=== PATIENT | female | born 1985 | race Caucasian/White ===

== ENCOUNTER 2018-10-24 17:58 | Emergency (ER) | payer BC ==
--- NOTE | 2018-10-24 18:26 | PDOC ---
History of Present Illness - History of Present Illness Initial Comments: 10/24/18 18:55 The patient is a 33-year-old female with no reported past medical history presents to the emergency department with a cough. The patient reports the since yesterday shes been having a severe cough, thats aggravated with deep breathing and worse than prior bouts of cough. The patient reports mild relief while eating. The patient reports associated symptoms of posttussive emesis, urinary incontinence and shortness of breath. Denies fevers or chills. The patient reports about 2 weeks back she was seen at a for viral URI symptoms, where she tested negative for flu and was given a decadron shot. The patient reports following that, she developed severe reflux and was seen by GI. The patient was scoped by GI, which was significant for esophagitis, secondary to relaxation of the pyloric from the shot and pharyngitis. The patient was prescribed Augmentin 10 day course, currently on the 7th day, 40 of Pepcid, Mylanta prn and antiviral medication. The patient reports she was seen by ENT yesterday, where she was scoped again and didnt report any abnormal results. Denies known sick contact. Denies hx of asthma. Allergies: NKDA Social history: None reported PCP: none reported <Brenda Tucker - Last Filed: 10/24/18 18:55> - General History Source: Patient Exam Limitations: No Limitations <Lani Peters - Last Filed: 10/25/18 07:41> - General Chief Complaint: Respiratory Stated Complaint: COUGH Time Seen by Provider: 10/24/18 18:23 Past History <Brenda Tucker - Last Filed: 10/24/18 18:55> - Past Medical History COPD: No Disorders: Yes (GERD, SUBLINGUAL TONSILITIS) Other medical history: TRAUMATIC BRAIN INJURY, PSORIASIS - Suicide/Smoking/Psychosocial Hx Smoking History: Never smoked Hx Alcohol Use: No Drug/Substance Use Hx: No <Lani Peters - Last Filed: 10/25/18 07:41> - Past Medical History Allergies/Adverse Reactions: Allergies Allergy/AdvReac Type Severity Reaction Status Date / Time No Known Allergies Allergy Verified 10/24/18 18:07 Home Medications: Ambulatory Orders Acyclovir [Zovirax -] 400 mg PO TID 10/24/18 Albuterol 0.083% Nebulizer Alannah [Ventolin 0.083% Nebulizer Soln -] 1 neb NEB Q4H #24 vial 10/24/18 Amoxicillin/Potassium Clav [Augmentin 875-125 Tablet] 1 each PO BID 10/24/18 Benzonatate [Tessalon Pearls -] 200 mg PO TID #21 cap 10/24/18 Calcium Carbonate [Tums Ultra] 400 mg PO PRN PRN 10/24/18 Esomeprazole Magnesium [Nexium 24Hr] 20 mg PO DAILY #14 capsule. 10/24/18 Famotidine [Pepcid] 40 mg PO BID 10/24/18 Mag Hydrox/Al Hydrox/Simeth [Mylanta Oral Suspension -] 30 ml PO TID 10/24/18 Nebulizer Accessories [A.i.r.s. Nebulizer] 1 each MC ONCE #1 kit 10/24/18 Nebulizer and Compressor [Comp-Air Nebulizer System] 1 each MC ONCE #1 each 05/06 Oxycodone HCl/Acetaminophen [Percocet 5-325 mg Tablet] 1 tab PO Q6H PRN Review of Systems - Review of Systems Able to Perform ROS?: Yes Comments:: 10/24/18 18:31 GENERAL/CONSTITUTIONAL: No fever or chills. No weakness. HEAD, EYES, EARS, NOSE AND THROAT: No change in vision. No ear pain or discharge. No sore throat. CARDIOVASCULAR: +shortness of breath. No chest pain. RESPIRATORY: +cough with posttussive emesis. No wheezing, or hemoptysis. GASTROINTESTINAL: No nausea, vomiting, diarrhea or constipation. GENITOURINARY: +urinary incontinence. No dysuria, frequency, or change in urination. MUSCULOSKELETAL: No joint or muscle swelling or pain. No neck or back pain. SKIN: No rash NEUROLOGIC: No headache, vertigo, loss of consciousness, or change in strength/ sensation. ENDOCRINE: No increased thirst. No abnormal weight change. HEMATOLOGIC/LYMPHATIC: No anemia, easy bleeding, or history of blood clots. ALLERGIC/IMMUNOLOGIC: No hives or skin allergy. <Brenda Tucker - Last Filed: 10/24/18 18:55> *Physical Exam - Vital Signs Last Vital Signs Temp Pulse Resp BP Pulse Ox 98.1 F 122 H 20 144/81 100 10/24/18 17:59 10/24/18 17:59 10/24/18 17:59 10/24/18 17:59 10/24/18 17:59 - Physical Exam Comments: 10/24/18 18:31 GENERAL: Awake, alert, and fully oriented, in no acute distress HEAD: No signs of trauma EYES: PERRLA, EOMI, sclera anicteric, conjunctiva clear ENT: +No tonsillar exudate, no plaque, posterior pharynx cobblestoning. NECK: Normal ROM, supple, no lymphadenopathy, JVD, or masses LUNGS: +decreased breath sounds at the bases with rhoni on cough and faint wheezing. HEART: Regular rate and rhythm, normal S1 and S2, no murmurs, rubs or gallops ABDOMEN: Soft, nontender. No guarding, no rebound. No masses EXTREMITIES: No lower extremity edema. NEUROLOGICAL: Awake, alert and oriented x3. SKIN: Warm, Dry, no rashes or lesions noted. <Brenda Tucker - Last Filed: 10/24/18 18:55> - Vital Signs Last Vital Signs Temp Pulse Resp BP Pulse Ox 98.1 F 122 H 20 144/81 100 10/24/18 17:59 10/24/18 17:59 10/24/18 17:59 10/24/18 17:59 10/24/18 17:59 <Lani Peters - Last Filed: 10/25/18 07:41> Moderate Sedation - Procedure Monitoring Vital Signs: Procedure Monitoring Vital Signs Temperature 98.1 F 10/24/18 17:59 Pulse Rate 122 H 10/24/18 17:59 Respiratory Rate 20 10/24/18 17:59 Blood Pressure 144/81 10/24/18 17:59 O2 Sat by Pulse Oximetry (%) 100 10/24/18 17:59 <Brenda Tucker - Last Filed: 10/24/18 18:55> - Procedure Monitoring Vital Signs: Procedure Monitoring Vital Signs Temperature 98.1 F 10/24/18 17:59 Pulse Rate 122 H 10/24/18 17:59 Respiratory Rate 20 10/24/18 17:59 Blood Pressure 144/81 10/24/18 17:59 O2 Sat by Pulse Oximetry (%) 100 10/24/18 17:59 <Lani Peters - Last Filed: 10/25/18 07:41> Medical Decision Making - Medical Decision Making 10/24/18 18:23 33 yo F h/o recently diagnosed viral uri, secondary esophagitis, pharyngitis after receiving decadron shot for pharyngitis. here today with worsening cough , no having coughing fits, followed by post tussive emesis and incontinence from severe coughing. no f/c cough nonproductive. no travel. no known sick contacts. 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 did see urgent care 4 days ago had cxr reportedly negative. flu was negative. then she saw ENT yesterday and rescope of throat / clear. differential: bronchospasm, laryngospasm secondary to viral uri, or severe gerd , pneumona, rib fracture or ptx. plan cxr duonebs. consider benzos for laryngospasm if no relief with humdified ox and nebs. although no stridor heard. 10/24/18 19:00 pt signed out to oncoming physician, awaiting cxr given duoneb. will swab for pertussis due to cough prolong course and coughing fits. <Lani Peters - Last Filed: 10/25/18 07:41> *DC/Admit/Observation/Transfer - Attestations Scribe Attestion: 10/24/18 18:31 Documentation prepared by Brenda Tucker, acting as director medical science for Lani Peters MD. <Brenda Tucker - Last Filed: 10/24/18 18:55> <Lani Peters - Last Filed: 10/25/18 07:41> Diagnosis at time of Disposition: Persistent cough - Discharge Dispostion Disposition: HOME Condition at time of disposition: Good - Prescriptions Prescriptions: Albuterol 0.083% Nebulizer Alannah [Ventolin 0.083% Nebulizer Soln -] 1 neb NEB Q4H #24 vial Benzonatate [Tessalon Pearls -] 200 mg PO TID #21 cap Esomeprazole Magnesium [Nexium 24Hr] 20 mg PO DAILY #14 capsule. Nebulizer Accessories [A.i.r.s. Nebulizer] 1 each MC ONCE #1 kit Nebulizer and Compressor [Comp-Air Nebulizer System] 1 each MC ONCE #1 each - Patient Instructions Additional Instructions: I am giving you a prescription for albuterol nebulizer treatments U can take them as often as every 4-6 hours if needed. Also Nexium take one tablet a day as discussed with the doctor, Return to the emergency department immediately with ANY new, persistent or worsening symptoms. Continue any medications as previously prescribed by your physician. You should follow up with your primary doctor as soon as possible regarding today's emergency department visit. . Please make sure your doctor reviews the results of your emergency evaluation. Thank you for coming to the Emergency Department today for your care. It was a pleasure to see you today. Please note that your evaluation is INCOMPLETE until you follow-up with your doctor.
[2018-10-24] MEDS ORDERED: ALBUTEROL SO4 2.5/IPRATROPIUM 0.5 INH SOL 3 ML VIAL.NEB. NEB ONE ×3 (18:27→19:10)
[2018-10-24 18:42] VITALS: BP 144/81; PULSE 122; TEMP 98.1; BMI 29.5
--- NOTE | 2018-10-24 19:35 | PDOC ---
*Physical Exam - Vital Signs Last Vital Signs Temp Pulse Resp BP Pulse Ox 98.1 F 122 H 20 144/81 100 10/24/18 17:59 10/24/18 17:59 10/24/18 17:59 10/24/18 17:59 10/24/18 17:59 ED Treatment Course - Medications Given in the ED: ED Medications Discontinued Medications Generic Name Dose Route Start Last Admin Trade Name Marques PRN Reason Stop Dose Admin Albuterol/Ipratropium 1 amp 10/24/18 18:27 10/24/18 19:13 Duoneb - NEB 10/24/18 18:28 1 amp ONCE ONE Administration Albuterol/Ipratropium 1 amp 10/24/18 18:27 10/24/18 19:13 Duoneb - NEB 10/24/18 18:28 1 amp ONCE ONE Administration Progress Note - Progress Note Progress Note: Care of this patient was transferred to me from Dr. Wray at 1900 hrs. Patient is a 33-year-old female who comes in complaining of difficulty breathing and the episodes of severe coughing. Patient has had multiple visits to her primary care doctor for similar complaint in addition to that patient was given steroids and as a result developed esophagitis. Patient said she was scoped yesterday and said that everything was clear regarding her esophagitis. Patient is receiving some dual nebs and will repeat a chest x-ray Swab will be sent for pertussis. 20:23 reevaluation patient feels better after nebulizer treatment. Patient deferred the chest x-ray. As she had had a negative/normal chest x-ray a few days ago and her lungs were clear on my examination Discussed with patient possibilities for her cough, a pertussis swab was sent and patient understands the results cannot be available for several days. Prescriptions were sent to patient's pharmacy for Tessalon Perles and for Nexium. Patient has a primary care doctor she can follow up with Friday *DC/Admit/Observation/Transfer Diagnosis at time of Disposition: Persistent cough - Discharge Dispostion Disposition: HOME Condition at time of disposition: Good Decision to Admit order: No - Prescriptions Prescriptions: Albuterol 0.083% Nebulizer Alannah [Ventolin 0.083% Nebulizer Soln -] 1 neb NEB Q4H #24 vial Benzonatate [Tessalon Pearls -] 200 mg PO TID #21 cap Esomeprazole Magnesium [Nexium 24Hr] 20 mg PO DAILY #14 capsule.dr - Referrals - Patient Instructions Additional Instructions: I am giving you a prescription for albuterol nebulizer treatments U can take them as often as every 4-6 hours if needed. Also Nexium take one tablet a day as discussed with the doctor, Return to the emergency department immediately with ANY new, persistent or worsening symptoms. Continue any medications as previously prescribed by your physician. You should follow up with your primary doctor as soon as possible regarding today's emergency department visit. . Please make sure your doctor reviews the results of your emergency evaluation. Thank you for coming to the Emergency Department today for your care. It was a pleasure to see you today. Please note that your evaluation is INCOMPLETE until you follow-up with your doctor. - Post Discharge Activity
== END 2018-10-24 20:37 | disposition home or self-care (01) ==
LOC: FER 17:58 → EDBD 17:58 → FER 20:37
PROC: 3E0F7GC Introduction of Other Therapeutic Substance into Respiratory Tract, Via Natural or Artificial Opening (ICD-10-PCS; principal; 2018-10-24)
DX: R05 Cough (principal); K21.9 Gastro-esophageal reflux disease without esophagitis
CPT/HCPCS: 84703; 87798; 99282-25

== ENCOUNTER 2021-03-17 06:22 | Emergency (ER) | payer BC ==
[2021-03-17 06:40] VITALS: PULSE 77; TEMP 98.2; BMI 31.1
[2021-03-17] MEDS ORDERED: SODIUM CHLORIDE 1,000 ML IV STA (06:57)
[2021-03-17] MEDS ORDERED: LORazepam 2 MG/ML SDV VIAL IVPUSH ONE (07:02)
[2021-03-17] MEDS ORDERED: LORazepam 2 MG/ML SDV VIAL ONE (07:13)
[2021-03-17 08:41] LABS: BASO % 0.6 % (0-2.0); EOS % 1.6 % (0-4.5); HEMATOCRIT 40.7 % (32.4-45.2); HEMOGLOBIN 14.1 GM/dl (10.7-15.3); LYMPH % 24.9 % (8-40); MCH 30.5 pg (25.7-33.7); MCHC 34.7 g/dl (32.0-36.0); MONO % 6.4 % (3.8-10.2); NEUT % 66.5 % (42.8-82.8); PLATELET COUNT 278 10^3/uL (134-434); RBC 4.63 M/mm3 (3.60-5.2); RDW 12.2 % (11.6-15.6); WHITE BLOOD COUNT 11.6 K/mm3 (4.0-10.8)
[2021-03-17 08:46] LABS: BILIRUBIN,TOTAL 1.1 mg/dl (0.2-1); CREATININE 0.8 mg/dl (0.55-1.3); MAGNESIUM 2.1 mg/dL (1.8-2.4); TOT PROT 6.9 g/dl (6.4-8.2)
[2021-03-17] MEDS ORDERED: KETOROLAC TROMETHAMINE 30 MG/1 ML VIAL IVPUSH ONE (08:49)
[2021-03-17] MEDS ORDERED: KETOROLAC TROMETHAMINE 15 MG/ML VIAL ONE (08:51)
[2021-03-17] MEDS ORDERED: SODIUM CHLORIDE 1,000 ML IV SCH (09:00)
[2021-03-17 09:02] VITALS: BP 115/62
== END 2021-03-17 10:00 | disposition home or self-care (01) ==
LOC: FER 06:22
PROC: 3E0333Z Introduction of Anti-inflammatory into Peripheral Vein, Percutaneous Approach (ICD-10-PCS; principal; 2021-03-17)
PROC: 3E033GC Introduction of Other Therapeutic Substance into Peripheral Vein, Percutaneous Approach (ICD-10-PCS; 2021-03-17)
PROC: 3E0337Z Introduction of Electrolytic and Water Balance Substance into Peripheral Vein, Percutaneous Approach (ICD-10-PCS; 2021-03-17)
DX: M79.10 Myalgia, unspecified site (principal)
CPT/HCPCS: 36415; 80053; 81003; 82550; 83735; 83874; 85025; 96361; 96374; 96375; 99284-25

== ENCOUNTER 2023-06-10 18:23 | Emergency (ER) | payer BC ==
[2023-06-10 18:41] VITALS: RESP 16; TEMP 98.8; BMI 29.4
[2023-06-10 20:41] LABS: HEMATOCRIT 45.5 % (32.4-45.2); HEMOGLOBIN 15.4 G/dL (10.7-15.3); MCH 29.9 pg (25.7-33.7); MCHC 33.8 g/dl (32.0-36.0); MEAN CELL VOLUME 88.7 fl (80-96); MEAN PLT VOLUME 8.2 fl (7.5-11.1); PLATELET COUNT 290.2 10^3/uL (134-434); RBC 5.13 10^6/uL (3.60-5.2); WHITE BLOOD COUNT 11.1 10^3/uL (4.0-10.8)
[2023-06-10 20:52] LABS: ALBUMIN 4.6 g/dl (3.4-5.0); BILIRUBIN,TOTAL 0.5 mg/dl (0.2-1); CALCIUM 9.7 mg/dl (8.5-10.1); CREATININE 0.8 mg/dl (0.6-1.3); POTASSIUM 4.8 mmol/L (3.5-5.1); TOT PROT 7.2 g/dl (6.4-8.2)
[2023-06-10 20:54] LABS: PLATELET ESTIMATE ADEQUATE
[2023-06-10 22:07] LABS: THROAT:GRP A STREP NOT DETECTED (NOTDETECTED)
[2023-06-10] MEDS ORDERED: DALBAVANCIN HCL 1,500 MG in DEXTROSE 5%-WATER - 500 ML IVPB ONE (22:50)
[2023-06-10] MEDS ORDERED: DALBAVANCIN HCL 500 MG VIAL (RESTRICTED TO ID ONLY) IVPB ONE (23:56)
[2023-06-11 02:16] VITALS: BP 142/94; PULSE 82
[2023-06-11] MEDS ORDERED: diphenhydrAMINE HCL 25 MG CAPSULE (FP) PO ONE ×2 (02:23→02:24)
== END 2023-06-11 02:50 | disposition home or self-care (01) ==
LOC: FER 18:23
DX: J02.9 Acute pharyngitis, unspecified (principal); R53.83 Other fatigue; R05.9 Cough, unspecified; Z20.822 Contact with and (suspected) exposure to COVID-19
CPT/HCPCS: 0241U-QW; 36415; 80053; 82962; 84443; 85027; 86140; 87651; 99284-25; J0875